=== PATIENT | female | born 1990 | race Asian ===

== ENCOUNTER → 2021-12-16 | Outpatient (CLI) | payer OTHER ==
[2021-12-18 08:07] LABS: HEPATITIS B CORE ANTIBODY Negative (Negative); HEPATITIS C AB <0.1 s/co ratio (0.0-0.9); HIV SCREEN 4G Non Reactive (Non Reactive)
== END | disposition home or self-care (01) ==
LOC: LAB 18:36
PROVIDERS: ATTEND Internal Medicine
DX: S69.92XA Unspecified injury of left wrist, hand and finger(s), initial encounter (principal); W46.0XXA Contact with hypodermic needle, initial encounter; Y93.89 Activity, other specified; Y92.89 Other specified places as the place of occurrence of the external cause; Y99.8 Other external cause status
CPT/HCPCS: 36415; 84460; 86704; 86706; 86803; 87389